=== PATIENT | female | born 2000 | race Caucasian/White ===

== ENCOUNTER 2024-03-14 14:34 | Outpatient (CLI) | payer OTHER, MEDICAID, SELFPAY ==
[2024-03-14 14:56] LABS: Appearance Urine Clear (Clear); Basophils Absolute Auto 0.03 K/mm3 (0.00-0.10); Basophils Percent Auto 0.3 % (0.0-1.0); Bilirubin Urine Negative (Negative); Blood Urine Trace-intact (Negative); Color Urine Light Yellow (Yellow); Eosinophils Absolute Auto 0.02 K/mm3 (0.02-0.50); Eosinophils Percent Auto 0.2 % (1.0-6.0); Glucose Urine UA Negative (Negative); Hematocrit 39.4 % (35.0-49.0); Hemoglobin 13.2 g/dL (12.0-15.0); Immature Granulocyte Absolute 0.04 K/mm3 (0.00-0.00); Immature Granulocyte Percent A 0.5 % (0.0-0.0); Ketones Urine Negative (Negative); Leukocyte Esterase Ur Trace (Negative); Lymphocytes Absolute Auto 1.52 K/mm3 (1.10-4.50); Lymphocytes Percent Auto 17.2 % (18.0-42.0); Mean Corpuscular HGB Conc 33.5 g/dL (32-36); Mean Corpuscular Hemoglobin 30.3 pg (27.0-31.0); Mean Corpuscular Volume 90.4 fL (78.0-102.0); Mean Platelet Volume 10.6 fl (9.2-11.8); Monocytes Absolute Auto 0.57 K/mm3 (0.10-0.90); Monocytes Percent Auto 6.4 % (2.0-11.0); Neutrophils Absolute Auto 6.67 K/mm3 (1.70-7.20); Neutrophils Percent Auto 75.4 % (50.0-70.0); Nitrate Urine Negative (Negative); Platelet Count Result 215 K/mm3 (150-420); Protein Urine Negative (Negative); Red Blood Count 4.36 M/mm3 (4.20-5.40); Red Cell Distribution Width 12.7 % (11.6-14.4); Specific Grav Ur 1.015 (1.010-1.020); Urobilinogen Urine 0.2 mg/dL (0.2-1.0); White Blood Count 8.9 K/mm3 (4.8-10.8)
[2024-03-14 15:05] LABS: Add Urine Microscopic? YES; Bacteria Urine None seen /hpf; RBC Urine 0-2 /hpf (0-2); Squamous Epithelial Cell Urine Moderate /hpf (Few); WBC Urine Noted /hpf (0-3)
[2024-03-14 15:27] LABS: Alanine Aminotransferase 25 U/L (14-59); Albumin Level 3.9 g/dL (3.4-5.0); Alkaline Phosphatase 54 U/L (46-116); Anion Gap 8 mmol/L (4-12); Aspartate Amino Transferase 12 U/L (15-37); Bilirubin,Total 0.8 mg/dL (0.00-1.00); Blood Urea Nitrogen 10 mg/dL (7-18); Carbon Dioxide 25 mmol/L (21-32); Chloride 105 mmol/L (98-108); Estimated Glomerular Filt Rate > 60; Free T4 Free Thyroxine 0.81 ng/dL (0.76-1.46); Glucose 92 mg/dL (70-99); Osmolality Calculated 285 mOsm/kg (285-295); Potassium 4.1 mmol/L (3.5-5.1); Sodium 138 mmol/L (136-145); Thyroid Stimulating Hormone 1.98 uIU/mL (0.36-3.74)
== END 2024-03-14 14:35 | disposition home or self-care (01) ==
LOC: CHSLAB 14:41
PROVIDERS: PCP Nurse Practitioner Family; Visit Provider Nurse Practitioner Family
DX: L03.316 Cellulitis of umbilicus (principal); R53.1 Weakness
CPT/HCPCS: 36415; 80053; 81001; 84439; 84443; 85025

== ENCOUNTER 2024-03-19 08:42 | Outpatient (CLI) | payer OTHER, MEDICAID, SELFPAY ==
--- NOTE | ~2024-03-19 | US_ITS ---
EXAMINATION: US breast LT complete HISTORY: Left breast lump TECHNIQUE: High resolution limited left breast ultrasound was performed. COMPARISON: None FINDINGS: Targeted sonographic imaging of the area of clinical concern was performed at the 12:00-o'clock posit ion of the left breast, 4 cm from the nipple. No solid or cystic mass lesion identified. No distinct sonographic abnormality seen. There is fibroglandular tissue present. IMPRESSION: No distinct sonographic correlate seen for the area of clinical concern in left breast. There is fib roglandular tissue present in this region. BI-RADS Category 1: Negative Reviewed, dictated and finalized at location . IMPRESSION: No distinct sonographic correlate seen for the area of clinical concern in lef t breast. There is fibroglandular tissue present in this region. BI-RADS Category 1: Negative
== END 2024-03-19 08:43 | disposition home or self-care (01) ==
PROVIDERS: PCP Nurse Practitioner Family; Visit Provider Nurse Practitioner Family
DX: N63.21 Unspecified lump in the left breast, upper outer quadrant (principal)
CPT/HCPCS: 76641

== ENCOUNTER 2024-07-03 07:22 | Outpatient (CLI) | payer OTHER, MEDICAID, SELFPAY ==
--- NOTE | ~2024-07-03 | US_ITS ---
EXAMINATION: US pelvic complete w TV DATE: 07/03/2024 07:52 INDICATION: Abnormal uterine bleeding. TECHNIQUE: Multiple transabdominal and transvaginal sonographic images of the pelvis were obtained. COMPARISON: None. FINDINGS: TRANSABDOMINAL ULTRASOUND: The uterus measures 6.1 x 5.8 x 4.0 cm. There is no free fluid in the pelvis. TRANSVAGINAL ULTRASOUND: The endometrial complex measures 4 mm in thickness. There is an intrauterine device in expected posit ion. The right ovary measures 3.1 x 2.2 x 2.0 cm. The left ovary measures 3.4 x 2.4 x 2.8 cm. IMPRESSION: 1. Intrauterine device in expected position. Reviewed, dictated and finalized at location A.
== END 2024-07-03 07:23 | disposition home or self-care (01) ==
LOC: CHSIMG 07:25
PROVIDERS: PCP Nurse Practitioner Family; Visit Provider Nurse Practitioner Family
DX: N93.9 Abnormal uterine and vaginal bleeding, unspecified (principal); Z97.5 Presence of (intrauterine) contraceptive device
CPT/HCPCS: 76830; 76856

== ENCOUNTER 2025-02-10 07:27 | Outpatient (CLI) | payer OTHER, MEDICAID, SELFPAY ==
--- NOTE | ~2025-02-10 | XR_ITS ---
XR shoulder LT min 2V Ordering provider: Gretchen Palacio, GLOBAL TECHNICAL WRITER History: . Left shoulder injury AFTER LIFTING BEER/UNABLE TO ABDUCT . Comparison: None. FINDINGS: BONES: No acute fracture or dislocation. JOINT SPACES: The acromioclavicular joint is normal. The glenohumeral joint is normal. SOFT TISSUES: Normal. IMPRESSION: No acute osseous abnormality left shoulder. Reviewed, dictated and finalized at location A.
--- OUTSIDE RECORDS SUMMARY | 2025-02-10 07:33 | XMS_ITS ---
Author Organization Unknown Address [address] [place] [address] [phone] Phone Care Team Providers Care Medical Laboratory Technicians Name Role Phone ALANNA Noel Attending Unavailable JAZMIN MAXWELL Primary Unavailable Immunization Immunization Date Status Additional Notes Code Code System MMR 02/12/2003 Completed 03 CVX MMR 01/15/2007 Completed 03 CVX Hep B, adolescent or pediatric 2002 Completed 08 CVX Hep B, adolescent or pediatric 2002 Completed 08 CVX Hep B, adolescent or pediatric 06/20/2005 Completed 08 CVX IPV 2002 Completed 10 CVX IPV 2002 Completed 10 CVX IPV 2002 Completed 10 CVX IPV 01/15/2007 Completed 10 CVX Hib, unspecified formulation 2002 Completed 17 CVX Hib, unspecified formulation 2002 Completed 17 CVX Hib, unspecified formulation 06/20/2005 Completed 17 CVX DTaP 2002 Completed 20 CVX DTaP 2002 Completed 20 CVX DTaP 2002 Completed 20 CVX DTaP 06/20/2005 Completed 20 CVX DTaP 01/15/2007 Completed 20 CVX varicella 02/12/2003 Completed 21 CVX HPV, quadrivalent 07/15/2013 Completed 62 C VX HPV, quadrivalent 10/21/2013 Completed 62 C VX HPV, quadrivalent 02/17/2014 Completed 62 C VX pneumococcal conjugate PCV 7 2002 Completed 100 CVX pneumococcal conjugate PCV 7 2002 Completed 100 CVX pneumococcal conjugate PCV 7 06/20/2005 Completed 100 CVX Tdap 07/15/2013 Completed 115 CVX Tdap 07/11/2021 Completed 115 CVX Tdap 05/06/2023 Completed 115 CVX Results NM GASTRIC EMPTYING - Comple jailene: 01/28/2025 12:15 LOINC: \TM00\12PI\DRAo\BM09\ \MRHo\ [address] [address] ---------NAME--------- NUMBER SEX AGE ADMIT DISC. XRAY# F/C TYPE JAMES DUCKWORTH [id number] F 24 01/28/25 01/28/25 67506 XB1 O/P DATE OF : 2000 M/R# [id number] PH#: [phone] \MRHx\ LOCATION: TRANSCRIBED: 01/28/25 14:43 NM GASTRIC EMPTYING [id number] COMPLETED:01/28/25 12:15 [place] [address] {REASON-NM ABD: NAUSEA/VOMITTING PHYSICIAN: QUICKSHONA R A D I O L O G Y R E P O R T Procedure: NM GASTRIC EMPTYING Exam Date: 01/28/2025 07:21 AM Reason for study/Clinical History: NAUSEA/VOMITTING Comparison Study: None Nuclear Medicine Solid Gastric Emptying Study Technique: The patient received an oral administration of 1.05 mCi of technetium 99m sulfur colloid labeled to standardized meal. Findings: Percent gastric retention is as follows: One hour 78 % retained, (normal greater than or equal to 70%) Two hour 49 % retained, (normal less than or equal to 60%) Four hour 9 % retained, (normal between 0% and 10%) Impression: Slightly elevated gastric retention at one hour. Otherwise, unremarkable exam. *Source: Journal of Nuclear Medicine Technology. Vol.36. No.1. 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 \ITLo\ \UNDo\ \UNDx\ \ITLx\ Reviewed and Electronically Signed by: Charlie Dupree MD Signed Date: 01/28/25 14:43 01/28/25.1445.TA .to JAZMIN DANIEL via modem Social History Type Status Start Date End Date Code Code Syst em Smoking History Never smoker (Never Smoked) 430680365 SNOMED CT Sex Female Medications Medication Start Date End Date Route Frequency Dose Code Code System Medication Instructions Home Meds Cephalexin 500MG Oral Capsule 04/21/2024 Unknown ORAL FOUR TIMES A DAY 500 MILLIGRAMS 896559 RxNorm TAKE 500 MILLIGRAMS ORAL FOUR TIMES A DAY Imitrex 25MG Oral Tablet 04/21/2024 Unknown ORAL DIRECTED 25 MILLIGRAMS 914136 RxNorm TAKE 25 MILLIGRAMS ORAL DIRECTED Pepcid 20MG Oral Tablet 04/21/2024 Unknown ORAL ONCE A DAY 20 MILLIGRAMS 367705 RxNorm TAKE 20 MILLIGRAMS ORAL ONCE A DAY Questran 4GM/9GM Oral Powder for Suspension 04/21/2024 Unknown ORAL ONCE A DAY 1 unit(s) 022251 RxNorm TAKE 1 EACH ORAL ONCE A DAY Zofran 4MG Oral Tablet 04/21/2024 Unknown ORAL NEEDED DAILY 4 MILLIGRAMS 618231 RxNorm TAKE 4 MILLIGRAMS ORAL NEEDED DAILY Hospital Discharge Instructions Should you have any questions prior to discharge, please contact a member of your healthcare team. If you have left the hospital and have any questions, please contact your primary care physician. Reason For Referral No Data Found Implants Implanted ISAURO Status Assigning Authority Procedure Date Lot Number Serial Number Manufacturing Date Expiration Date Distinct ID Code Brand Name Model Number FASTTHREAD BIOCOMPOSI TE INTERFENCE SCREW 8 X 20 MM Active ARTHRS AIDED ANT CRUCIATE LIGM RPR/AGMNTJ /RCNSTJ 12/31 [id number] 0 08/23/2020 REF: AR-4020 C-08 JRF SPEEDGRAFT Active ARTHRS AIDED ANT CRUCIATE LIGM RPR/AGMNTJ /RCNSTJ 12/31 ID:[id number] 05/14/2025 SIZE: 8.0 X 234 MM MENISCAL CINCH II Active ARTHRS KNE SURG W/MENISCEC JES MED/LAT W/SHVG 12/31 0783598 2 08/23/2023 REF:AR- 4501 MENISCAL CINCH II Active ARTHRS KNE SURG W/MENISCEC JES MED/LAT W/SHVG 12/31 [id number] 10/24/2023 REF:AR- 4501 ACL TIGHTROPE RT Active ARTHRS AIDED ANT CRUCIATE LIGM RPR/AGMNTJ /RCNSTJ 12/31 7360019 2 09/23/2023 ARTHRE X REF:AR- 1588RT Allergies and Adverse Reactions Allergy Substance Reaction Severity Start Date Concern Status Co de Code System No Known Drug Allergies Active 385782213 SNOMED-CT Plan of Treatment Arthroscopy w/ACL Recon L (XRAY) 2018 Knee 1-2V Left 12/31/2018 Arthroscopy w/ACL Recon L (XRAY) 2018 Knee 1-2V Left 12/31/2018 Arthroscopy Knee L (XRAY) 02/14/2023 Knee 1-2V Left 02/14/2023 Arthrocentesis Inj Major Joint 07/04/20 MRI Low Ext Any Joint W Contrast (67319) 07/04/2023 US Pelvis/Transvaginal (32061) 07/09/20 23 US Abd Limited (06034) 09/07/2023 CT Abdomen/Pelvis W Contrast (10657) EGD 04/21/2024 NM Gastric Emptying (96969) 01/28/2025 Encounters Encounter Diagnosis Start Date Code Code Sys tem Nausea and vomiting 01/28/2025 42827616 SNOMED-C T Personal Care Team Section Performer Name Performer Role Active Date Inactive YENNIFER Smith PCP - Primary care physician 2023-02-082023-07-09 Yonatan Odonnell PCP - Primary care physician 2023-07-09 Imaging Narrative Notes [facility] 01/28/2025 14:45 [facility] [address] [place] [address] ---------NAME--------- NUMBER SEX AGE ADMIT DISC. XRAY# F/C TYPE JAMES DUCKWORTH [id number] F 24 01/28/25 01/28/25 75844 XB1 O/P DATE OF : 2000 M/R# [id number] #: [id number] RM LOCATION: TRANSCRIBED: 01/28/25 14:43 NM GASTRIC EMPTYING 26724 COMPLETED:01/28/25 12:15 [place] [address] {REASON-NM ABD: NAUSEA/VOMITTING PHYSICIAN: QUICKSHONA RADIOLOGY REPORT Procedure: NM GASTRIC EMPTYING Exam Date: 01/28/2025 07:21 AM Reason for study/Clinical History: NAUSEA/VOMITTING Comparison Study: None Nuclear Medicine Solid Gastric Emptying Study Technique: The patient received an oral administration of 1.05 mCi of technetium 99m sulfur colloid labeled to standardized meal. Findings: Percent gastric retention is as follows: One hour 78 % retained, (normal greater than or equal to 70%) Two hour 49 % retained, (normal less than or equal to 60%) Four hour 9 % retained, (normal between 0% and 10%) Impression: Slightly elevated gastric retention at one hour. Otherwise, unremarkable exam. *Source: Journal of Nuclear Medicine Technology. Vol.36. No.1. 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
--- OUTSIDE RECORDS SUMMARY | 2025-02-10 07:33 | XMS_ITS ---
Author Organization Unknown Address [address] [place] [address] [phone] Phone Care Team Providers Care Valve Repairer Name Role Phone ALANNA Noel Attending Unavailable [...] 115 CVX Tdap 05/06/2023 Completed 115 CVX Social History Type Status Start Date End Date Code Code Syst em Smoking History Never smoker (Never Smoked) 128356835 SNOMED CT Sex Female Medications Medication Start Date End Date Route Frequency Dose Code Code System Medication Instructions Home Meds Cephalexin 500MG Oral Capsule 04/21/2024 Unknown ORAL FOUR TIMES A DAY 500 MILLIGRAMS 555928 RxNorm TAKE 500 MILLIGRAMS ORAL FOUR TIMES A DAY Imitrex 25MG Oral Tablet 04/21/2024 Unknown ORAL DIRECTED 25 MILLIGRAMS 945476 RxNorm TAKE 25 MILLIGRAMS ORAL DIRECTED Pepcid 20MG Oral Tablet 04/21/2024 Unknown ORAL ONCE A DAY 20 MILLIGRAMS 573189 RxNorm TAKE 20 MILLIGRAMS ORAL ONCE A DAY Questran 4GM/9GM Oral Powder for Suspension 04/21/2024 Unknown ORAL ONCE A DAY 1 unit(s) 875478 RxNorm TAKE 1 EACH ORAL ONCE A DAY Zofran 4MG Oral Tablet 04/21/2024 Unknown ORAL NEEDED DAILY 4 MILLIGRAMS 313843 RxNorm TAKE 4 MILLIGRAMS ORAL NEEDED DAILY [...] AIDED ANT CRUCIATE LIGM RPR/AGMNTJ /RCNSTJ 12/31 8942456 0 08/23/2020 REF: AR-4020 C-08 JRF SPEEDGRAFT Active ARTHRS AIDED ANT CRUCIATE LIGM RPR/AGMNTJ /RCNSTJ 12/31 ID:[id number] 05/14/2025 SIZE: 8.0 X 234 MM MENISCAL CINCH II Active ARTHRS KNE SURG W/MENISCEC JES MED/LAT W/SHVG 12/31 6620777 2 08/23/2023 REF:AR- 4501 MENISCAL CINCH II Active ARTHRS KNE SURG W/MENISCEC JES MED/LAT W/SHVG 12/31 M857084 10/24/2023 REF:AR- 4501 ACL TIGHTROPE RT Active ARTHRS AIDED ANT CRUCIATE LIGM RPR/AGMNTJ /RCNSTJ 12/31 3112341 2 09/23/2023 ARTHRE X REF:AR- 1588RT Allergies and Adverse Reactions Allergy Substance Reaction Severity Start Date Concern Status Co de Code System No Known Drug Allergies Active 933229424 SNOMED-CT Plan of Treatment Arthroscopy w/ACL Recon L (XRAY) 2018 Knee 1-2V Left 12/31/2018 Arthroscopy w/ACL Recon L (XRAY) 2018 Knee 1-2V Left 12/31/2018 Arthroscopy Knee L (XRAY) 02/14/2023 Knee 1-2V Left 02/14/2023 Arthrocentesis Inj Major Joint 07/04/20 MRI Low Ext Any Joint W Contrast (28910) 07/04/2023 US Pelvis/Transvaginal (31543) 07/09/20 US Abd Limited (29083) 09/07/2023 CT Abdomen/Pelvis W Contrast (47457) EGD 04/21/2024 NM Gastric Emptying (16334) 01/28/2025 Encounters Encounter Diagnosis Start Date Code Code Sys tem Gastro-esophageal reflux disease without esophagitis 0 01/21/2025 SNOMED-CT Personal Care Team Section Performer Name Performer Role Active Date Inactive YENNIFER Smith PCP - Primary care physician 2023 2023-07-09 Yonatan Odonnell PCP - Primary care physician 2023-07-09
--- OUTSIDE RECORDS SUMMARY | 2025-02-10 07:33 | XMS_ITS ---
Author Organization Unknown Address [address] [place] [address] [phone] Phone Care Team Providers Care Skate Boarder Name Role Phone ALANNA Noel Attending Unavailable [...] CVX Tdap 05/06/2023 Completed 115 CVX Results CRP NON SPECIFIC - Collect D ate/Time: 04/04/2024 08:45 [facility] ID: [id number] [address] [place] [address], [phone] LOINC: 1988-01 Test Value Unit Reference Range Code Code System Flag CRP-NON SPECIFIC < 5.0 mg/L L=0.0 H=10.0 1988-01 LOINC CELIAC DISEASE PANEL(REF) - Collect Date/Time: 04/04/2024 08:45 [facility] ID: [id number] [address] [place] [address], [phone] LOINC: Test Value Unit Reference Range Code Code System Flag Immunoglobulin A, Qn,Serum 186 87-352 2458-8 LOINC Deamidated Gliadin Abs,IgA 10 0-19 76313-5 LOINC Deamidated Gliadin Abs,IgG 2 0-19 76987-3 LOINC t-Transglutaminase (tTG)IgA <2 0-3 72724-8 LOIN C t-Transglutaminase (tTG)IgG 3 0-5 36942-7 LOIN C THYROID PROFILE - Collect Da te/Time: 04/04/2024 08:45 [facility] ID: [id number] [address] [place] [address], [phone] LOINC: Test Value Unit Reference Range Code Code System Flag T4, FREE 0.92 ng/dL L=0.78 H=2.19 3024-7 LOINC TSH. 1.970 uIU/L L=0.470 H=4.680 70706-7 LOINC Social History Type Status Start Date End Date Code Code Syst em Smoking History Never smoker (Never Smoked) 346555759 SNOMED CT Sex Female Medications Medication Start Date End Date Route Frequency Dose Code Code System Medication Instructions Home Meds Colace 100MG Oral Capsule, Liquid Filled 02/14/2023 04/07/2024 ORAL TWICE A DAY 100 MILLIGRAMS 3492184 RxNorm TAKE 100 MILLIGRAMS ORAL TWICE A DAY Cyclobenzapr ine 10MG Oral Tablet 02/14/2023 04/07/2024 ORAL NEEDED 3 TIMES A DAY 10 MILLIGRAMS 911848 RxNorm TAKE 10 MILLIGRAMS ORAL NEEDED 3 TIMES A DAY Enteric Aspirin 325MG Oral Tablet, Enteric Coated 02/14/2023 04/07/2024 ORAL ONCE A DAY 325 MILLIGRAMS RxNorm TAKE 325 MILLIGRAMS ORAL ONCE A DAY HYDROcodone bitartrate-a cetaminophen 5MG-325MG Oral Tablet 02/14/2023 04/07/2024 ORAL NEEDED EVERY 6 HOURS 1 unit(s) 468662 RxNorm TAKE 1 EACH ORAL NEEDED EVERY 6 HOURS Keflex 500MG Oral Capsule 02/14/2023 04/07/2024 ORAL THREE TIMES A DAY 500 MILLIGRAMS 567944 RxNorm TAKE 500 MILLIGRAMS ORAL THREE TIMES A DAY Omeprazole 20 MG Oral Tablet, Delayed Release 02/14/2023 04/07/2024 ORAL ONCE A DAY 20 MG RxNorm TAKE 20 MG ORAL ONCE A DAY Cephalexin 500MG Oral Capsule 04/21/2024 Unknown ORAL FOUR TIMES A DAY 500 MILLIGRAMS 077148 RxNorm TAKE 500 MILLIGRAMS ORAL FOUR TIMES A DAY Imitrex 25MG Oral Tablet 04/21/2024 Unknown ORAL DIRECTED 25 MILLIGRAMS 526665 RxNorm TAKE 25 MILLIGRAMS ORAL DIRECTED Pepcid 20MG Oral Tablet 04/21/2024 Unknown ORAL ONCE A DAY 20 MILLIGRAMS 720966 RxNorm TAKE 20 MILLIGRAMS ORAL ONCE A DAY Questran 4GM/9GM Oral Powder for Suspension 04/21/2024 Unknown ORAL ONCE A DAY 1 unit(s) 299896 RxNorm TAKE 1 EACH ORAL ONCE A DAY Zofran 4MG Oral Tablet 04/21/2024 Unknown ORAL NEEDED DAILY 4 MILLIGRAMS 152295 RxNorm TAKE 4 MILLIGRAMS ORAL NEEDED DAILY [...] AIDED ANT CRUCIATE LIGM RPR/AGMNTJ /RCNSTJ 12/31 4736350 0 08/23/2020 REF: AR-4020 C-08 JRF SPEEDGRAFT Active ARTHRS AIDED ANT CRUCIATE LIGM RPR/AGMNTJ /RCNSTJ 12/31 ID:[id number] 05/14/2025 SIZE: 8.0 X 234 MM MENISCAL CINCH II Active ARTHRS KNE SURG W/MENISCEC JES MED/LAT W/SHVG 12/31 4488367 2 08/23/2023 REF:AR- 4501 MENISCAL CINCH II Active ARTHRS KNE SURG W/MENISCEC JES MED/LAT W/SHVG 12/31 R782291 10/24/2023 REF:AR- 4501 ACL TIGHTROPE RT Active ARTHRS AIDED ANT CRUCIATE LIGM RPR/AGMNTJ /RCNSTJ 12/31 5619891 2 09/23/2023 ARTHRE X REF:AR- 1588RT Allergies and Adverse Reactions Allergy Substance Reaction Severity Start Date Concern Status Co de Code System No Known Drug Allergies Active 670129292 SNOMED-CT Plan of Treatment Arthroscopy w/ACL Recon L (XRAY) 2018 Knee 1-2V Left 12/31/2018 Arthroscopy w/ACL Recon L (XRAY) 2018 Knee 1-2V Left 12/31/2018 Arthroscopy Knee L (XRAY) 02/14/2023 Knee 1-2V Left 02/14/2023 Arthrocentesis Inj Major Joint 07/04/20 23 MRI Low Ext Any Joint W Contrast (39760) 07/04/2023 US Pelvis/Transvaginal (33873) 07/09/20 23 US Abd Limited (81626) 09/07/2023 CT Abdomen/Pelvis W Contrast (95230) EGD 04/21/2024 NM Gastric Emptying (43364) 01/28/2025 Encounters Encounter Diagnosis Start Date Code Code Sys tem Diarrhea, unspecified 04/04/2024 SNOMED -CT Personal Care Team Section Performer Name Performer Role Active Date Inactive YENNIFER Smith PCP - Primary care physician 2023 2023-07-09 Yonatan Odonnell PCP - Primary care physician 2023-07-09
--- OUTSIDE RECORDS SUMMARY | 2025-02-10 07:33 | XMS_ITS ---
Author Organization Unknown Address [address] [place] [address] [phone] Phone Care Team Providers Care Service And Repair Supervisor Name Role Phone WASSERMAN HIMA Attending Unavailable JAZMIN MAXWELL Primary Unavailable Immunization [...] CVX Tdap 05/06/2023 Completed 115 CVX Results US ABD LIMITED - Completed: 09/07/2023 10:51 LOINC: EXAM DESCRIPTION: US ABD LIMITED REASON FOR STUDY: UMBILICUS DISCHARGE TECHNIQUE: Ultrasound of the right upper quadrant of the abdomen was performed with grayscale and color doppler. COMPARISON: 03/30/2023 FINDINGS: No fluid collection, hernia, or other cause for presentation identified. IMPRESSION: No fluid collection, hernia, or other cause for presentation identified. Review of the 03/30/2023 CT abdomen pelvis demonstrates a somewhat deep umbilicus which could potentially contain trace fluid or infection. THIS IS AN ELECTRONICALLY VERIFIED FINAL REPORT 09/08/2023 7:19 PM - Electronically signed by Santo Salazar M.D. AR: MARLON Report ID: [id number] Reading Location: [place] [address] Social History Type Status Start Date End Date Code Code Syst em Smoking History Never smoker (Never Smoked) 143209593 SNOMED CT Sex Female Medications Medication Start Date End Date Route Frequency Dose Code Code System Medication Instructions Home Meds Colace 100MG Oral Capsule, Liquid Filled 02/14/2023 04/07/2024 ORAL TWICE A DAY 100 MILLIGRAMS 4449255 RxNorm TAKE 100 MILLIGRAMS ORAL TWICE A DAY Cyclobenzapr ine 10MG Oral Tablet 02/14/2023 04/07/2024 ORAL NEEDED 3 TIMES A DAY 10 MILLIGRAMS 784438 RxNorm TAKE 10 MILLIGRAMS ORAL NEEDED 3 TIMES A DAY Enteric Aspirin 325MG Oral Tablet, Enteric Coated 02/14/2023 04/07/2024 ORAL ONCE A DAY 325 MILLIGRAMS RxNorm TAKE 325 MILLIGRAMS ORAL ONCE A DAY HYDROcodone bitartrate-a cetaminophen 5MG-325MG Oral Tablet 02/14/2023 04/07/2024 ORAL NEEDED EVERY 6 HOURS 1 unit(s) 197584 RxNorm TAKE 1 EACH ORAL NEEDED EVERY 6 HOURS Keflex 500MG Oral Capsule 02/14/2023 04/07/2024 ORAL THREE TIMES A DAY 500 MILLIGRAMS 324483 RxNorm TAKE 500 MILLIGRAMS ORAL THREE TIMES A DAY Omeprazole 20 MG Oral Tablet, Delayed Release 02/14/2023 04/07/2024 ORAL ONCE A DAY 20 MG RxNorm TAKE 20 MG ORAL ONCE A DAY Cephalexin 500MG Oral Capsule 04/21/2024 Unknown ORAL FOUR TIMES A DAY 500 MILLIGRAMS 485000 RxNorm TAKE 500 MILLIGRAMS ORAL FOUR TIMES A DAY Imitrex 25MG Oral Tablet 04/21/2024 Unknown ORAL DIRECTED 25 MILLIGRAMS 607963 RxNorm TAKE 25 MILLIGRAMS ORAL DIRECTED Pepcid 20MG Oral Tablet 04/21/2024 Unknown ORAL ONCE A DAY 20 MILLIGRAMS 526503 RxNorm TAKE 20 MILLIGRAMS ORAL ONCE A DAY Questran 4GM/9GM Oral Powder for Suspension 04/21/2024 Unknown ORAL ONCE A DAY 1 unit(s) 887426 RxNorm TAKE 1 EACH ORAL ONCE A DAY Zofran 4MG Oral Tablet 04/21/2024 Unknown ORAL NEEDED DAILY 4 MILLIGRAMS 934337 RxNorm TAKE 4 MILLIGRAMS ORAL NEEDED DAILY [...] AIDED ANT CRUCIATE LIGM RPR/AGMNTJ /RCNSTJ 12/31 0287182 0 08/23/2020 REF: AR-4020 C-08 JRF SPEEDGRAFT Active ARTHRS AIDED ANT CRUCIATE LIGM RPR/AGMNTJ /RCNSTJ 12/31 ID:[id number] 68-080 05/14/2025 SIZE: 8.0 X 234 MM MENISCAL CINCH II Active ARTHRS KNE SURG W/MENISCEC JES MED/LAT W/SHVG 12/31 2577212 2 08/23/2023 REF:AR- 4501 MENISCAL CINCH II Active ARTHRS KNE SURG W/MENISCEC JES MED/LAT W/SHVG 12/31 [id number] 10/24/2023 REF:AR- 4501 ACL TIGHTROPE RT Active ARTHRS AIDED ANT CRUCIATE LIGM RPR/AGMNTJ /RCNSTJ 12/31 1676760 2 09/23/2023 ARTHRE X REF:AR- 1588RT Allergies and Adverse Reactions Allergy Substance Reaction Severity Start Date Concern Status Co de Code System No Known Drug Allergies Active 483240098 SNOMED-CT Plan of Treatment Arthroscopy w/ACL Recon L (XRAY) 2018 Knee 1-2V Left 12/31/2018 Arthroscopy w/ACL Recon L (XRAY) 2018 Knee 1-2V Left 12/31/2018 Arthroscopy Knee L (XRAY) 02/14/2023 Knee 1-2V Left 02/14/2023 Arthrocentesis Inj Major Joint 07/04/20 MRI Low Ext Any Joint W Contrast (99504) 07/04/2023 US Pelvis/Transvaginal (48479) 07/09/20 US Abd Limited (15520) 09/07/2023 CT Abdomen/Pelvis W Contrast (74488) EGD 04/21/2024 NM Gastric Emptying (84635) 01/28/2025 Encounters Encounter Diagnosis Start Date Code Code Sys tem Digestive system finding 09/07/2023 461722725 SNO MED-CT Personal Care Team Section Performer Name Performer Role Active Date Inactive YENNIFER Smith PCP - Primary care physician 2023 2023-07-09 Yonatan Odonnell PCP - Primary care physician 2023-07-09 Imaging Narrative Notes
--- OUTSIDE RECORDS SUMMARY | 2025-02-10 07:33 | XMS_ITS ---
Author Organization Unknown Address [address] [place] [address] [phone] Phone Care Team Providers Care Appeals Manager Name Role Phone JUANY Miller Attending Unavailable HUONG PARMAR NUT GRADER Unavailable JAZMIN MAXWELL Primary Unavailable Immunization Immunization [...] CVX Tdap 05/06/2023 Completed 115 CVX Results TEST URINE - Colle ct Date/Time: 04/21/2024 10:01 [facility] ID: [id number] [address] [place], [place], [id number] LOINC: Test Value Unit Reference Range Code Code System Flag URINE PREG NEGATIVE Social History Type Status Start Date End Date Code Code Syst em Smoking History Never smoker (Never Smoked) 353778561 SNOMED CT Sex Female Vital Signs Vital Sign Value Unit [place] Value [place] Unit Date/Time Recent/Initial? Code Code System Body Mass Index 26.61 kg/m2 04/21/2024 10:03 Most Recent 58182 -5 LOINC Body Mass Index 26.61 kg/m2 04/07/2024 10:18 Initial 44469 -5 LOINC Systolic Blood Pressure 112 mm[Hg] 04/21/2024 10:03 Initial 8480- 6 LOINC Diastolic Blood Pressure 75 mm[Hg] 04/21/2024 10:03 Initial 8462- 4 LOINC Body Surface Area 1.78 m2 04/21/2024 10:03 Most Recent 3140- 1 LOINC Body Surface Area 1.78 m2 04/07/2024 10:18 Initial 3140- 1 LOINC Height 162.560 0 cm 64.00 in 04/21/2024 10:03 Most Recent 8302- 2 LOINC Height 162.560 0 cm 64.00 in 04/07/2024 10:18 Initial 8302- 2 LOINC O2 Saturation 96 % 2023 10:03 Initial 93339 -5 LOINC Pulse 62.0 /min 04/21/2024 10:03 Initial 8867- 4 LOINC Respiration 14 /min 04/21/20 10:03 Initial 9279- 1 LOINC Temperature 36.4 Kendra 97.5 F 04/21/20 10:03 Initial 8310- 5 LOINC Weight 70.31 kg 155.00 lbs 04/21/2024 10:03 Most Recent 24042 -7 LOINC Weight 70.31 kg 155.00 lbs 04/07/2024 10:18 Initial 57372 -7 LOINC Medications Medication Start Date End Date Route Frequency Dose Code Code System Medication Instructions Home Meds Cephalexin 500MG Oral Capsule 04/21/2024 Unknown ORAL FOUR TIMES A DAY 500 MILLIGRAMS 456181 RxNorm TAKE 500 MILLIGRAMS ORAL FOUR TIMES A DAY Imitrex 25MG Oral Tablet 04/21/2024 Unknown ORAL DIRECTED 25 MILLIGRAMS 346660 RxNorm TAKE 25 MILLIGRAMS ORAL DIRECTED Pepcid 20MG Oral Tablet 04/21/2024 Unknown ORAL ONCE A DAY 20 MILLIGRAMS 911494 RxNorm TAKE 20 MILLIGRAMS ORAL ONCE A DAY Questran 4GM/9GM Oral Powder for Suspension 04/21/2024 Unknown ORAL ONCE A DAY 1 unit(s) 319490 RxNorm TAKE 1 EACH ORAL ONCE A DAY Zofran 4MG Oral Tablet 04/21/2024 Unknown ORAL NEEDED DAILY 4 MILLIGRAMS 806338 RxNorm TAKE 4 MILLIGRAMS ORAL NEEDED DAILY Hospital Discharge Instructions Should you have any questions prior to discharge, please contact a member of your healthcare team. If you have left the hospital and have any questions, please contact your primary care physician. Reason For Referral No Data Found Procedures Procedure Name Date Status Code Code Syste m Anesthesia for upper gastroi ntestinal endoscopic procedures, endoscope int 04/21/2024 completed 12856 CPT Esophagogastroduodenoscopy, flexible, transoral; with biopsy, single or mu 04/21/2024 completed 00729 CPT Implants Implanted ISAURO Status Assigning Authority Procedure Date Lot Number Serial Number Manufacturing Date Expiration Date Distinct ID Code Brand Name Model Number FASTTHREAD BIOCOMPOSI TE INTERFENCE SCREW 8 X 20 MM Active ARTHRS AIDED ANT CRUCIATE LIGM RPR/AGMNTJ /RCNSTJ 12/31 [id number] 08/23/2020 REF: [id number] C-08 JR SPEEDGRAFT Active ARTHRS AIDED ANT CRUCIATE LIGM RPR/AGMNTJ /RCNSTJ 12/31 ID:[id number] 05/14/2025 SIZE: 8.0 X 234 MM MENISCAL CINCH II Active ARTHRS KNE SURG W/MENISCEC JES MED/LAT W/SHVG 12/31 [id number] 2 08/23/2023 REF:AR- [id number] MENISCAL CINCH II Active ARTHRS KNE SURG W/MENISCEC JES MED/LAT W/SHVG 12/31 [id number] 10/24/2023 REF:AR- 4501 ACL TIGHTROPE RT Active ARTHRS AIDED ANT CRUCIATE LIGM RPR/AGMNTJ /RCNSTJ 12/31 [id number] 2 09/23/2023 ARTHRE X REF:AR- [id number] Allergies and Adverse Reactions Allergy Substance Reaction Severity Start Date Concern Status Co de Code System No Known Drug Allergies Active 592562012 SNOMED-CT Plan of Treatment Arthroscopy w/ACL Recon L (XRAY) 2018 Knee 1-2V Left 12/31/2018 Arthroscopy w/ACL Recon L (XRAY) 2018 Knee 1-2V Left 12/31/2018 Arthroscopy Knee L (XRAY) 02/14/2023 Knee 1-2V Left 02/14/2023 Arthrocentesis Inj Major Joint 07/04/20 MRI Low Ext Any Joint W Contrast (21721) 07/04/2023 US Pelvis/Transvaginal (91635) 07/09/20 US Abd Limited (38324) 09/07/2023 CT Abdomen/Pelvis W Contrast (26201) EGD 04/21/2024 NM Gastric Emptying (60620) 01/28/2025 Encounters Encounter Diagnosis Start Date Code Code Sys tem Unspecified chronic gastritis without bleeding 024 SNOMED-CT Personal Care Team Section Performer Name Performer Role Active Date Inactive YENNIFER Smith PCP - Primary care physician 2023 2023-07-09 Yonatan Odonnell PCP - Primary care physician 2023-07-09
--- OUTSIDE RECORDS SUMMARY | 2025-02-10 07:34 | XMS_ITS | Clinical Summary ---
Author Organization [facility] Address [address] [place] [address] Care Team Providers Care Kennel Technician Name Role Phone Gretchen Palacio [employer]IA SPECIALIST Primary Care Provider Allergies No known active allergies Medications pantoprazole EC (PROTONIX) 40 MG tablet Take 1 tablet (40 mg total) by mouth daily. 30 tablet 05/08/2024 Active meloxicam (MOBIC) 15 MG tablet Take 1 tablet (15 mg total) by mouth daily with food 30 tablet 07/31/2024 Active Active Problems Problem Noted Date Diagnosed Date S/P arthroscopy of left knee 03/05/2023 Gallstone pancreatitis ([facility]) 12/14/2021 Pancreatitis ([facility]) 11/12/2021 Transaminitis 11/11/2021 Perineal laceration during delivery ([facility]) Gestational hypertension ([facility]) 10/03/2021 Encounter for induction of labor ([facility]) 10/03 Anemia of in third trimester ([facility]) 10/03/2021 Rh negative state in antepar kathryn period, third trimester ([facility]) 10/03/2021 37 weeks gestation of ([facility]) 2021 Resolved Problems Problem Noted Date Diagnosed Date Resolved Date Tears of meniscus and ACL of left knee 03/12/2019 10/03/2021 Immunizations Immunization Administration Dates Next Due Tdap (Boostrix) 05/06/2023 Family History Medical History Relation Comments Hypertension Father Hypertension Mother Relation Status Comments Father Alive Mother Alive Social History Tobacco Use Types Packs/Day Years Used Date Smoking Tobacco: Never Smokeless Tobacco: Never Tobacco Cessation:Counseling Given: Not Answered Comments:Vapes dailly Alcohol Use Standard Drinks/Week Comments Not Currently 0 (1 standard drink = 0.6 oz pur e alcohol) Humiliation, Afraid, Rape, and Kick questionnair e Answer Date Recorded Within the last year, have y ou been afraid of your partner or ex-partner? No 10/03/2021 Within the last year, have y ou been humiliated or emotionally abused in other ways by your partner or ex-partner? No Within the last year, have y ou been kicked, hit, slapped, or otherwise physically hurt by your partner or ex-partner? No 10/03/2021 Within the last year, have y ou been raped or forced to have any kind of sexual activity by your partner or ex-partner? No 10/03/2021 Social Connection and Isolat ion Panel [NHANES] Answer Date Recorded In a typical week, how many times do you talk on the phone with family, friends, or neighbors? More than three times a week 10/03/2021 How often do you get togethe r with friends or relatives? More than three times a week 10/03/2021 How often do you attend chur ch or voodoo services? Never 10/03/2021 Do you belong to any clubs o r organizations such as presybeterian groups, unions, fraternal or athletic groups, or school groups? No 10/03/2021 How often do you attend meet ings of the clubs or organizations you belong to? Never 10/03/2021 Are you , , di vorced, , never , or living with a partner? Never 10/03/2021 AUDIT-C Answer Date Recorded Q1: How often do you have a drink containing alc ohol? Never 10/03/2021 Q2: How many drinks containi ng alcohol do you have on a typical day when you are drinking? Patient declined 10/03/2021 Q3: How often do you have si x or more drinks on one occasion? Never 10/03/2021 Overall Financial Resource Strain (CARDIA) Answe r Date Recorded How hard is it for you to pa y for the very basics like food, housing, medical care, and heating? Not hard at all 10/03/2021 [facility] - Occupational Stress Questionnaire Answer Date Recorded Do you feel stress - tense, restless, nervous, or anxious, or unable to sleep at night because your mind is troubled all the time - these days? Not at all 10/03/2021 Exercise Vital Sign Answer Date Recorde d On average, how many days pe r week do you engage in moderate to strenuous exercise (like a brisk walk)? 0 days 10/03/2021 On average, how many minutes do you engage in exercise at this level? 0 min 10/03/2021 Hunger Vital Sign Answer Date Recorded Within the past 12 months, y ou worried that your food would run out before you got the money to buy more. Never true 10/03/19 22 Within the past 12 months, t he food you bought just didn't last and you didn't have money to get more. Never true 10/03/2021 PRAPARE - Transportation Answer Date Re corded In the past 12 months, has l ack of transportation kept you from medical appointments or from getting medications? No 09/24 In the past 12 months, has l ack of transportation kept you from meetings, work, or from getting things needed for daily living? No 10/03/2021 Housing Stability Vital Sign Answer Dinesh e Recorded In the last 12 months, was t here a time when you were not able to pay the mortgage or rent on time? No 10/03/2021 In the last 12 months, how many places have you lived? 2 10/03/2021 In the last 12 months, was t here a time when you did not have a steady place to sleep or slept in a jail (including now)? No 10/03/2021 Depression Answer Date Recor ded Last EPDS Total Score 0 10/02/2021 Last EPDS Self Harm Result Never 10/02 Comments No Sex and Gender Information Value Date Recorded Sex Assigned at Female 10/02/2021 8:36 PM COMMUNITY LIAISON Legal Sex Female 5:58 PM COMMUNITY LIAISON Gender Identity Female 10/02/2021 8:36 PM COMMUNITY LIAISON Sexual Orientation Not on file Last Filed Vital Signs Vital Sign Reading Time Taken Comments Blood Pressure 126/67 07/25/2024 11:48 AM CDT Pulse 63 07/25/2024 11:48 AM CDT Temperature 36.3 C (97.3 F) 07/25/2024 11:12 AM CDT Respiratory Rate 18 07/25/2024 11:12 AM CDT Oxygen Saturation 100% 07/25/2024 11:48 AM CDT Inhaled Oxygen Concentration - - Weight 74.8 kg (165 lb) 07/31/2024 1:34 PM COMMUNITY LIAISON Height 165.1 cm (5' 5 ) 07/31/2024 1:34 PM COMMUNITY LIAISON Body Mass Index 27.46 07/31/2024 1:34 PM COMMUNITY LIAISON Plan of Treatment Health Maintenance Due Date Last Done Comments Cervical Cancer Screening Pap Smear (Age 21 to 29) Every 3 Years 2002 Cervical Cancer Screening 2002 Annual Physical 2005 Meningococcal B Vaccine (1 of 2 - Standard) 2018 COVID-19 Vaccine ( season) 2024 DTaP, Tdap and Td Vaccines (9 - Td or Tdap) 05/06/2033 05/06/2023, 07/11/2021, 07/15/2013, Additional history exists Hepatitis B Vaccines Completed 06/20/2005, 2002, 2002 Pneumococcal Vaccine: Pediatrics (0 to 5 Years) and At-Risk Patients (6 to 49 Years) Aged Out 06/20/2005, 2002, 2002 No longer eligible based on patient's age to complete this topic HPV Vaccines Completed 02/17/2014, 09/25, 07/15/2013 Hepatitis C Completed 11/10/2021 Meningococcal Vaccine Aged Out No emily alexi eligible based on patient's age to complete this topic RSV Immunizations Under 20 Months Aged Out No longer eligible based on patient's age to complete this topic Goals Goal Patient Goal Type Associated Problems Recent Progress Patient-Stated? Author Patient will return to prior living situation and remain independent in ADLs upon discharge from hospital General No Nichole Kelly, commercial front load operator - family caregiver with be involved in care transitions and discharge planning General No Indu Castano, riveter helper Procedure Name Priority Date/Time Associated Diagnosis Comments HEPATITIS PANEL,ACUTE Routine 11/10/2021 6:55 AM COMMUNITY LIAISON from Last 3 Months or Most Recently Relevant to Health Maintenance Results * HEPATITIS PANEL,ACUTE (11/10/2021 6:55 AM COMMUNITY LIAISON) HEPATITIS B SURFACE AG NON-REACT LISA NON-REACT LISA 11/10/2021 6:00 PM COMMUNITY LIAISON [facility] Comment:HBsAg NOT DETECTED. HEP B CORE IGM NON-REACT LISA NON-REACT LISA 11/10/2021 6:00 PM COMMUNITY LIAISON [facility] Comment: IgM ANTI HBc NOT DETECTED. DOES NOT EXCLUDE THE POSSIBILITY OF EXPOSURE TO OR INFECTION WITH HBV. NO RETEST REQUIRED. HIGH DOSES OF BIOTIN MAY INTERFERE WITH THIS TEST RESULT. CORRELATION TO CLINICAL HISTORY AND PRESENTATION RECOMMENDED. HAV IGM NON-REACT LISA NON-REACT LISA 11/10/2021 6:00 PM COMMUNITY LIAISON [facility] Comment: IgM ANTI HAV NOT DETECTED. DOES NOT EXCLUDE THE POSSIBILITY OF EXPOSURE TO OR INFECTION WITH HAV. LEVELS OF IgM ANTI HAV MAY BE BELOW THE CUTOFF IN EARLY INFECTION. HEPATITIS C AB NON-REACT LISA NON-REACT LISA 11/10/2021 6:00 PM COMMUNITY LIAISON [facility] Comment: ANTIBODIES TO HCV NOT DETECTED. DOES NOT EXCLUDE THE POSSIBILITY OF EXPOSURE TO HCV. 11/10/2021 6:55 AM COMMUNITY LIAISON Mohamud May MD LABORATORY Final Result [facility] [address] [id number], [id number] from Last 3 Months or Most Recently Relevant to Health Maintenance Additional Health Concerns Infection Onset Date Last Indicated ESBL - Extended Spectrum Bet a-lactamase Comment:10/09/21 Urine (SB) 10/11/2021 10/11/2021 Insurance MEDICAID Advance Directives * Full Code (Latest Code Status on File) Date Activated Date Inactivated Comments 11/12/2021 1:48 PM 11/15/2021 2:21 PM * Full Code Date Activated Date Inactivated Comments 11/10/2021 12:11 PM 11/11/2021 7:10 PM * Full Code Date Activated Date Inactivated Comments 10/02/2021 8:16 PM 10/05/2021 9:57 PM * Full Code Date Activated Date Inactivated Comments 09/30/2021 8:51 AM 09/30/2021 2:19 PM Care Teams Kennel Technician Relationship Specialty Start Date End Date Gretchen Palacio NP PCP - General NURSE PRACTITIONER 05/13/23
--- OUTSIDE RECORDS SUMMARY | 2025-02-10 07:34 | XMS_ITS | Clinical Summary ---
Author Organization [facility] true[x] Media Address [address] [place] [address] Care Team Providers Care Furnace Clerk Name Role Phone Paige Gilbert MD Primary Care Provider [phone] Source Comments [facility] true[x] Media,non-owned Affiliates and Associated Physician Practices is amultiple site organization consisting of ambulatory clinics and hospital sitesin [place], [place], [place] and [place]. This disclosure is being madepursuant to the Care Everywhere program and may not contain all information available regarding this patient. Last updated 18.[facility] true[x] Media Allergies No known active allergies Medications * Be aware that medications may not be up to date on this document. Alwaysverify current medications with the patient. topiramate (TOPAMAX SPRINKLE) 25 MG capsule 25 mg PO QHS for 2 weeks, then increase to 50 mg PO QHS 60 Cap 5 01/12/2015 Active Social History Tobacco Use Types Packs/Day Years Used Date Smoking Tobacco: Never Alcohol Use Standard Drinks/Week Comments Not Asked 0 (1 standard drink = 0.6 oz pur e alcohol) Comments No Sex and Gender Information Value Date Recorded Sex Assigned at Not on file Legal Sex Female 9:31 AM CDT Gender Identity Not on file Sexual Orientation Not on file Last Filed Vital Signs Vital Sign Reading Time Taken Comments Blood Pressure 110/68 05/12/2015 9:23 AM CDT Pulse - - Temperature - - Respiratory Rate - - Oxygen Saturation - - Inhaled Oxygen Concentration - - Weight 73.6 kg (162 lb 4.8 oz) 05/12/2015 9:23 A M CDT Height 162.1 cm (5' 3.82 ) 05/12/2015 9:23 AM CD T Body Mass Index 28.02 05/12/2015 9:23 AM CDT Plan of Treatment Health Maintenance Due Date Last Done Comments HIV SCREENING 2017 HPV VACCINE (1 - 3-dose series) 2017 CHLAMYDIA/GONORRHEA SCREENING 2018 MENINGOCOCCAL (Group B) VACC INE SHARED DECISION-MAKING (1 of 2 - Standard) 2018 HEPATITIS C SCREENING 02/04/2020 DTAP/TDAP/TD VACCINES (1 - Tdap) 2021 HEPATITIS B VACCINE (1 of 3 - 19+ 3-dose series) 2021 COVID-19 VACCINE (1 - 2023-2 5 season) 2024 DEPRESSION SCREENING 09/24/2024 INFLUENZA VACCINE (Season Ended) 2025 ZOSTER VACCINE (1 of 2) 02/09/2052 HIB VACCINE Aged Out No longer eligi ble based on patient's age to complete this topic MENINGOCOCCAL GROUPS A/C/Y/W VACCINE Aged Out No longer eligible b ased on patient's age to complete this topic PNEUMOCOCCAL VACCINE Aged Out No long er eligible based on patient's age to complete this topic Insurance [facility] Care Teams Furnace Clerk Relationship Specialty [place] [address] [place] [address] PCP - General Family Medicine 12/29/14
--- OUTSIDE RECORDS SUMMARY | 2025-02-10 07:34 | XMS_ITS | Encounter Summary ---
Author Organization [facility] Address [address] [place] [address] Care Team Providers Care Muffler Installer Name Role Phone Jose Servin MD Primary Care Provider [phone] Gretchen Palacio NP Primary Care Provider [phone] Encounter Details Date Type Department Care Team (Late st Contact Info) Description 12/16/2021 Hospital Follow-up Call [facility] Medical Oncology [address] [place] [address] Tabby Downing, AVA Social History Tobacco Use Types Packs/Day Years Used Date Smoking Tobacco: Never Smokeless Tobacco: Never Alcohol Use Standard Drinks/Week Comments Not Currently [...] often do you attend chur ch or uatsdin services? Never 10/03/2021 Do you belong to any clubs o r organizations such as religious groups, unions, fraternal or athletic groups, or [...] and heating? Not hard at all 10/03/2021 [facility] ional Health - Occupational Stress [...] place to sleep or slept in a usp (including now)? No 10/03/2021 Depression Answer Date Recor ded Last EPDS Total Score 0 10/02/2021 Last EPDS Self Harm Result Never 10/02 Comments No Sex and Gender Information Value Date Recorded Sex Assigned at Female 10/02/2021 8:36 PM CYBER OPERATOR Legal Sex Female 5:58 PM CYBER OPERATOR Gender Identity Female 10/02/2021 8:36 PM CYBER OPERATOR Sexual Orientation Not on file COVID-19 Exposure Response Date Recorded In the last 10 days, have yo u been in contact with someone who was confirmed or suspected to have Coronavirus/COVID-19? No / Unsure 12/14/2021 3:12 PM CDT documented as of this encounter Functional Status * RETIRED Are you deaf or do you have serious difficulty hearing Answer Date of Assessment Author Status No 12/14/2021 7:20 PM CDT Activ e * RETIRED Are you blind or do you have serious difficulty seeing, even when wearing glasses? Answer Date of Assessment Author Status No 12/14/2021 7:20 PM CDT Activ e * Do you have serious difficulty walking or climbing stairs? Answer Date of Assessment Author Status No 12/14/2021 7:20 PM CDT Juan A Mora RN Active * Do you have difficulty dressing or bathing? Answer Date of Assessment Author Status No 12/14/2021 7:20 PM CDT Juan A Mora RN Active * Because of a physical, mental, or emotional condition, do you have difficulty doing errands alone such as visiting a doctor's office or shopping? Answer Date of Assessment Author Status No 12/14/2021 7:20 PM CDT uJan A Mora RN Active documented as of this encounter Mental Status * Because of a physical, mental, or emotional condition, do you have serious difficulty concentrating, remembering, or making decisions? Answer Entry Date Author Status No 12/14/2021 7:20 PM CDT Juan A Mora RN Active documented in this encounter Plan of Treatment Not on file documented as of this encounter Goals Goal Patient Goal Type Associated Problems Recent Progress Patient-Stated? Author Patient will return to prior living situation and remain independent in ADLs upon discharge from hospital General No Nichole Kelly, information security architect - family caregiver with be involved in care transitions and discharge planning General No Indu Castano RN documented as of this encounter Visit Diagnoses Not on filedocumented in this encounter Additional Health Concerns Infection Onset Date Last Indicated Resolved Time ESBL - Extended Spectrum Bet a-lactamase Comment:10/09/21 Urine (SB) 10/11/2021 10/11/2021 documented as of this encounter Care Teams Muffler Installer Relationship Specialty Start Date End Date Jose Servin MD [address] [place] [id number] PCP - General FAMILY PRACTICE 11/10/21 05/12/23 Gretchen Palacio NP [address] [place] [phone] PCP - General NURSE PRACTITIONER 05/13/23 documented as of this encounter
--- OUTSIDE RECORDS SUMMARY | 2025-02-10 07:34 | XMS_ITS ---
Author Organization Unknown Address [address] [place] [phone] Phone Care Team Providers Care Warehouse Receiver Name Role Phone WASSERMAN HIMA Attending Unavailable [...] em Smoking History Never smoker (Never Smoked) [id number] SNOMED CT Sex Female Medications Medication Start Date End Date Route Frequency Dose Code Code System Medication Instructions Home Meds Colace 100MG Oral Capsule, Liquid Filled 02/14/2023 04/07/2024 ORAL TWICE A DAY 100 MILLIGRAMS 4252303 RxNorm TAKE 100 MILLIGRAMS ORAL TWICE A DAY Cyclobenzapr ine 10MG Oral Tablet 02/14/2023 04/07/2024 ORAL NEEDED 3 TIMES A DAY 10 MILLIGRAMS 325671 RxNorm TAKE 10 MILLIGRAMS ORAL NEEDED 3 TIMES A DAY Enteric Aspirin 325MG Oral Tablet, Enteric Coated 02/14/2023 04/07/2024 ORAL ONCE A DAY 325 MILLIGRAMS RxNorm TAKE 325 MILLIGRAMS ORAL ONCE A DAY HYDROcodone bitartrate-a cetaminophen 5MG-325MG Oral Tablet 02/14/2023 04/07/2024 ORAL NEEDED EVERY 6 HOURS 1 unit(s) 696419 RxNorm TAKE 1 EACH ORAL NEEDED EVERY 6 HOURS Keflex 500MG Oral Capsule 02/14/2023 04/07/2024 ORAL THREE TIMES A DAY 500 MILLIGRAMS 566832 RxNorm TAKE 500 MILLIGRAMS ORAL THREE TIMES A DAY Omeprazole 20 MG Oral Tablet, Delayed Release 02/14/2023 04/07/2024 ORAL ONCE A DAY 20 MG RxNorm TAKE 20 MG ORAL ONCE A DAY Cephalexin 500MG Oral Capsule 04/21/2024 Unknown ORAL FOUR TIMES A DAY 500 MILLIGRAMS 677406 RxNorm TAKE 500 MILLIGRAMS ORAL FOUR TIMES A DAY Imitrex 25MG Oral Tablet 04/21/2024 Unknown ORAL DIRECTED 25 MILLIGRAMS 519126 RxNorm TAKE 25 MILLIGRAMS ORAL DIRECTED Pepcid 20MG Oral Tablet 04/21/2024 Unknown ORAL ONCE A DAY 20 MILLIGRAMS 516785 RxNorm TAKE 20 MILLIGRAMS ORAL ONCE A DAY Questran 4GM/9GM Oral Powder for Suspension 04/21/2024 Unknown ORAL ONCE A DAY 1 unit(s) 948187 RxNorm TAKE 1 EACH ORAL ONCE A DAY Zofran 4MG Oral Tablet 04/21/2024 Unknown ORAL NEEDED DAILY 4 MILLIGRAMS 712826 RxNorm TAKE 4 MILLIGRAMS ORAL NEEDED DAILY [...] AIDED ANT CRUCIATE LIGM RPR/AGMNTJ /RCNSTJ 12/31 [id number] 0 08/23/2020 REF: AR-4020 C-08 JRF SPEEDGRAFT Active ARTHRS AIDED ANT CRUCIATE LIGM RPR/AGMNTJ /RCNSTJ 12/31 ID:[id number] 05/14/2025 SIZE: 8.0 X 234 MM MENISCAL CINCH II Active ARTHRS KNE SURG W/MENISCEC JES MED/LAT W/SHVG 12/31 [id number] 2 08/23/2023 REF:AR- 4501 MENISCAL CINCH II Active ARTHRS KNE SURG W/MENISCEC JES MED/LAT W/SHVG 12/31 [id number] 10/24/2023 REF:AR- 4501 ACL TIGHTROPE RT Active ARTHRS AIDED ANT CRUCIATE LIGM RPR/AGMNTJ /RCNSTJ 12/31 [id number] 2 09/23/2023 ARTHRE X REF:AR- 1588RT Allergies and Adverse Reactions Allergy Substance Reaction Severity Start Date Concern Status Co de Code System No Known Drug Allergies Active 266491212 SNOMED-CT Plan of Treatment Arthroscopy w/ACL Recon L (XRAY) 2018 Knee 1-2V Left 12/31/2018 Arthroscopy w/ACL Recon L (XRAY) 2018 Knee 1-2V Left 12/31/2018 Arthroscopy Knee L (XRAY) 02/14/2023 Knee 1-2V Left 02/14/2023 Arthrocentesis Inj Major Joint 07/04/20 MRI Low Ext Any Joint W Contrast (83402) 07/04/2023 US Pelvis/Transvaginal (88959) 07/09/20 US Abd Limited (25130) 09/07/2023 CT Abdomen/Pelvis W Contrast (01220) EGD 04/21/2024 NM Gastric Emptying (77622) 01/28/2025 Encounters Encounter Diagnosis Start Date Code Code Sys tem Other specified symptoms and signs involving the digestive system and abdomen 08/29/2023 SNOMED-CT Personal Care Team Section Performer Name Performer Role Active Date Inactive YENNIFER Smith PCP - Primary care physician 2023 2023-07-09 Yonatan Odonnell PCP - Primary care physician 2023-07-09
--- OUTSIDE RECORDS SUMMARY | 2025-02-10 07:34 | XMS_ITS | Clinical Summary ---
Author Organization [facility] Address [address] [place] [address] Phone Care Team Providers Care Biodiesel Process Control Technician Name Role Phone Unavailable Primary Care Provider Unavailabl e Allergies No known active allergies Medications prochlorperazine maleate (COMPAZINE) 10 mg tablet Take 1 Tablet (10 mg) by mouth every 8 hours as needed for Nausea. 15 Tablet 07/07/2023 Active dicyclomine (BENTYL) 20 mg tablet Take 1 Tablet (20 mg) by mouth 4 times daily as needed for Pain. 20 Tablet 07/07/2023 Active Social History Tobacco Use Types Packs/Day Years Used Date Smoking Tobacco: Never Tobacco Cessation:Counseling Given: Not Answered Alcohol Use Standard Drinks/Week Comments Not Currently 0 (1 standard drink = 0.6 oz pur e alcohol) Feeling Safe Answer Date Recorded Are you in a relationship wi th someone who hurts you emotionally and/or physically? No 07/07/2023 Comments Unknown Sex and Gender Information Value Date Recorded Sex Assigned at Not on file Legal Sex Female 7:18 AM CDT Gender Identity Not on file Sexual Orientation Not on file Last Filed Vital Signs Vital Sign Reading Time Taken Comments Blood Pressure 135/75 07/07/2023 7:23 AM CDT Pulse 65 07/07/2023 7:23 AM CDT Temperature 36.4 C (97.5 F) 07/07/2023 7:23 AM CDT Respiratory Rate 18 07/07/2023 7:23 AM CDT Oxygen Saturation 100% 07/07/2023 7:23 AM CDT Inhaled Oxygen Concentration - - Weight 70.3 kg (155 lb) 07/07/2023 7:23 AM CDT Height - - Body Mass Index - - Plan of Treatment Health Maintenance Due Date Last Done Comments CHLAMYDIA SCREENING (ANNUAL) 11-24 YEARS 2013 HPV VACCINES (1 - 3-dose series) 2017 HEPATITIS B VACCINES (1 of 3 - 19+ 3-dose series) 01/22 CERVICAL CANCER SCREENING 2023 HPV/Cotest (21-29) 2023 PAP SMEAR 2023 INFLUENZA VACCINE (#1) 2024 DTAP/TDAP/TD VACCINES (2 - Td or Tdap) 05/06/2033 Insurance [facility] [id number] POS II
--- OUTSIDE RECORDS SUMMARY | 2025-02-10 07:34 | XMS_ITS | Encounter Summary ---
Author Organization [facility] Address [address] [place] [address] Care Team Providers Care Continuous Mining Machine Lode Miner Name Role Phone Paige Gilbert MD Primary Care Provider Jose Servin MD Primary Care Provider [phone] Gretchen Palacio NP Primary Care Provider [phone] Encounter Details Date Type Department Care Team (Late st Contact Info) Description 03/01/2019 Abstract SFL CONVERSION [address] [place] [address] , Generic Conversion, Social History Tobacco Use Types Packs/Day Years Used Date Smoking Tobacco: Never Assessed Comments Unknown Sex and Gender Information Value Date Recorded Sex Assigned at Female 10/02/2021 8:36 PM INSTALL TECHNICIAN Legal Sex Female 5:58 PM INSTALL TECHNICIAN Gender Identity Female 10/02/2021 8:36 PM INSTALL TECHNICIAN Sexual Orientation Not on file documented as of this encounter Plan of Treatment Not on file documented as of this encounter Visit Diagnoses Not on filedocumented in this encounter Additional Health Concerns Infection Onset Date Last Indicated Resolved Time COVID-19 Rule Out 09/30/2021 09/30/2021 09/30/2021 10:27 PM INSTALL TECHNICIAN ESBL - Extended Spectrum Beta-lactamase Comment:10/09/21 Urine (SB) 10/11/2021 10/11/2021 COVID-19 Rule Out 11/12/2021 11/12/2021 11/12/2021 9:58 AM INSTALL TECHNICIAN COVID-19 Rule Out 12/14/2021 12/14/2021 12/14/2021 10:09 PM CDT documented as of this encounter Care Teams Continuous Mining Machine Lode Miner Relationship Specialty [place] [address] [place] [address] PCP - General FAMILY PRACTICE 03/05/19 11/09/21 Jose Servin MD [address] [place] [address] PCP - General FAMILY PRACTICE 11/10/21 05/12/23 Gretchen Palacio NP [address] [place] [address] PCP - General NURSE PRACTITIONER 05/13/23 documented as of this encounter
--- OUTSIDE RECORDS SUMMARY | 2025-02-10 07:34 | XMS_ITS ---
Author Organization Unknown Address [address] [place] [phone] Phone Care Team Providers Care Orthopedic Specialist Name Role Phone JUANI Castellanos Attending Unavailable JAZMIN MAXWELL Primary Unavailable Immunization [...] CVX Tdap 05/06/2023 Completed [address] ABD/PEL W/ CONTRAST - Com pleted: 05/06/2024 10:38 [facility]: [id number] EXAM DESCRIPTION: CT ABD/PEL W/ CONTRAST REASON FOR STUDY: cellulitis of umbilicus --yellow discharge x 2 yrs hx gb removed 2 yrs ago, IUD Duration: 2 yrs TECHNIQUE: CT scan of the abdomen and pelvis performed with intravenous and without oral contrast using helical scanning technique with dynamic intravenous contrast injection. Reconstructed coronal and sagittal MPR images reviewed. All images stored on PACS. Automated exposure control was used as a dose optimization technique for this examination. CONTRAST TYPE/DOSE: 100 of isovue 370 injected via right antecubital IV COMPARISON: 03/30/2023 FINDINGS: LOWER CHEST: The heart size is normal. There is no definite evidence of a pericardial effusion. There is a minimal to mild bibasilar subsegmental atelectasis. LIVER: The liver is grossly stable in size and contour without definite evidence of focal hepatic lesion. The hepatic and portal veins are grossly patent. GALLBLADDER: Surgically absent. BILE DUCTS: No intrahepatic or extrahepatic ductal dilatation. SPLEEN: The spleen measures 12.7 cm in the AP dimension, which is at the upper limits of normal. PANCREAS: The pancreas appears grossly stable without definite of pancreatic ductal dilatation, peripancreatic inflammatory changes, or peripancreatic fluid collection. ADRENALS: The bilateral adrenal glands are grossly stable and unremarkable. KIDNEYS/URINARY TRACT: The bilateral kidneys enhance symmetrically. There is no definite evidence of a focal renal lesion. 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 There is no definite evidence of hydronephrosis or hydroureter. The urinary bladder is grossly unremarkable. GI: There is no definite evidence of a bowel obstruction. The appendix is visualized without definite evidence of pericecal or periappendiceal inflammatory changes to suggest appendicitis. There are few scattered colonic diverticula without definite evidence of diverticulitis. There is mild mucosal thickening of the descending colon and proximal sigmoid colon. There is no definite evidence of free air in the abdomen and pelvis. There is small amount of nonspecific free fluid in the pelvis. There is no definite evidence of lymphadenopathy in the abdomen and pelvis. REPRODUCTIVE: There is an intrauterine device noted in the uterus. There are prominent periuterine vessels noted with reflux of contrast into the gonadal veins, which is nonspecific, and can be seen in the setting of pelvic congestion syndrome. There are likely follicular changes of the bilateral ovaries. There is a cystic lesion in the left ovary measuring 1.6 cm with an irregular hyperattenuating rim, which likely represents a corpus luteum or hemorrhagic cyst, possibly resolving (axial image 127). MUSCULOSKELETAL: There is a minimal to mild levoscoliotic curvature of the spine. The visualized periumbilical soft tissues appear grossly unremarkable without definite CT evidence of periumbilical inflammatory changes or periumbilical fluid collection. OTHER: No other abnormality. IMPRESSION: ? ? Visualized periumbilical soft tissues appear grossly unremarkable without definite CT evidence of periumbilical inflammatory changes or periumbilical fluid collection. ? ? No definite evidence of bowel obstruction. ? ? Mild mucosal thickening of the descending colon and proximal sigmoid colon, which is likely related to underdistention and less likely mild colitis of infectious or inflammatory etiology. ? ? Left ovarian cystic lesion measuring 1.6 cm with an irregular hyperattenuating rim, which likely represents a corpus luteum or hemorrhagic cyst, possibly resolving. ? ? Small amount of nonspecific free fluid in the pelvis. ? ? Few scattered colonic diverticula without definite evidence of diverticulitis. ? ? Appendix is visualized without definite evidence of pericecal or periappendiceal inflammatory changes to suggest appendicitis. THIS IS AN ELECTRONICALLY VERIFIED FINAL REPORT 05/07/2024 9:29 AM - Electronically signed by Mio Cantu D.O. PS: PS Report ID: [id number] Reading Location: [place] [address] Social History Type Status Start Date End Date Code Code Syst em Smoking History Never smoker (Never Smoked) [id number] [facility] Sex Female Medications Medication Start Date End Date Route Frequency Dose Code Code System Medication Instructions Home Meds Cephalexin 500MG Oral Capsule 04/21/2024 Unknown ORAL FOUR TIMES A DAY 500 MILLIGRAMS 800241 RxNorm TAKE 500 MILLIGRAMS ORAL FOUR TIMES A DAY Imitrex 25MG Oral Tablet 04/21/2024 Unknown ORAL DIRECTED 25 MILLIGRAMS 327427 RxNorm TAKE 25 MILLIGRAMS ORAL DIRECTED Pepcid 20MG Oral Tablet 04/21/2024 Unknown ORAL ONCE A DAY 20 MILLIGRAMS 756462 RxNorm TAKE 20 MILLIGRAMS ORAL ONCE A DAY Questran 4GM/9GM Oral Powder for Suspension 04/21/2024 Unknown ORAL ONCE A DAY 1 unit(s) 356782 RxNorm TAKE 1 EACH ORAL ONCE A DAY Zofran 4MG Oral Tablet 04/21/2024 Unknown ORAL NEEDED DAILY 4 MILLIGRAMS 159547 RxNorm TAKE 4 MILLIGRAMS ORAL NEEDED DAILY [...] AIDED ANT CRUCIATE LIGM RPR/AGMNTJ /RCNSTJ 12/31 [id number] 0 08/23/2020 REF: AR-4020 C-08 JRF SPEEDGRAFT Active ARTHRS AIDED ANT CRUCIATE LIGM RPR/AGMNTJ /RCNSTJ 12/31 ID:[id number] 05/14/2025 SIZE: 8.0 X 234 MM MENISCAL CINCH II Active ARTHRS KNE SURG W/MENISCEC JES MED/LAT W/SHVG 12/31 [id number] 2 08/23/2023 REF:AR- 4501 MENISCAL CINCH II Active ARTHRS KNE SURG W/MENISCEC JES MED/LAT W/SHVG 12/31 [id number] 10/24/2023 REF:AR- 4501 ACL TIGHTROPE RT Active ARTHRS AIDED ANT CRUCIATE LIGM RPR/AGMNTJ /RCNSTJ 12/31 [id number] 2 09/23/2023 ARTHRE X REF:AR- 1588RT Allergies and Adverse Reactions Allergy Substance Reaction Severity Start Date Concern Status Co de Code System No Known Drug Allergies Active [id number] SNOMED-CT Plan of Treatment Arthroscopy w/ACL Recon L (XRAY) 2018 Knee 1-2V Left 12/31/2018 Arthroscopy w/ACL Recon L (XRAY) 2018 Knee 1-2V Left 12/31/2018 Arthroscopy Knee L (XRAY) 02/14/2023 Knee 1-2V Left 02/14/2023 Arthrocentesis Inj Major Joint 07/04/20 MRI Low Ext Any Joint W Contrast ([id number]) 07/04/2023 US Pelvis/Transvaginal (44116) 07/09/20 US Abd Limited (06369) 09/07/2023 CT Abdomen/Pelvis W Contrast (98484) EGD 04/21/2024 NM Gastric Emptying (60240) 01/28/2025 Encounters Encounter Diagnosis Start Date Code Code Sys tem Cellulitis of left lower limb 05/06/2024 SNOMED-CT Personal Care Team Section Performer Name Performer Role Active Date Inactive YENNIFER Smith PCP - Primary care physician 2023 2023-07-09 Yonatan Odonnell PCP - Primary care physician 2023-07-09 Imaging Narrative Notes
== END 2025-02-10 07:28 | disposition home or self-care (01) ==
LOC: CHSIMG 07:30
PROVIDERS: PCP Nurse Practitioner Family; Visit Provider Nurse Practitioner Family
DX: S49.92XA Unspecified injury of left shoulder and upper arm, initial encounter (principal)
CPT/HCPCS: 73030

== ENCOUNTER 2025-07-30 14:14 | Outpatient (CLI) | payer OTHER, MEDICAID, SELFPAY ==
--- OUTSIDE RECORDS SUMMARY | 2025-07-29 09:06 | XMS_ITS | Encounter Summary ---
Author Organization [facility] Address [facility] [place] [address] Care Team Providers Care Sports Apparel Internship Name Role Phone Gretchen Palacio ORCHESTRA MUSICIAN Primary Care Provider [phone] Reason for Visit * Reason Comments Nose Problem Encounter Details Date Type Department Care Team ([facility] st Contact Info) Description 07/29/2025 9:06 AM TITLE AGENT - 07/29/2025 9:50 AM [facility] Emergency [facility] [facility] [place], [place] [id number] Chino Carr MD [address] [place] [id number] Nose Problem Discharge Disposition: Home or Self Care (Routine Discharge) Social History Tobacco Use Types Packs/Day Years Used Date Smoking Tobacco: Never Smokeless Tobacco: Never Comments:Vapes dailly Alcohol Use Standard Drinks/Week Comments [...] or ex-partner? No 10/03/2021 Social Connection and Isolation Panel Answer Date Recorded In a typical week, how many times do you talk on the phone with family, friends, or neighbors? More than three times a week 10/03/2021 How often do you get togethe r with friends or relatives? More than three times a week 10/03/2021 How often do you attend chur ch or judaism services? Never 10/03/2021 Do you belong to any clubs o r organizations such as mandaeism groups, unions, fraternal or athletic groups, or [...] and heating? Not hard at all 10/03/2021 [facility] [place] of Occupat ional Health - Occupational Stress [...] place to sleep or slept in a nursing home (including now)? No 10/03/2021 Depression Answer Date Recor ded Last EPDS Total Score 0 10/02/2021 Last EPDS Self Harm Result Never 10/02 Comments No Sex and Gender Information Value Date Recorded Sex Assigned at Female 10/02/2021 8:36 PM TITLE AGENT Legal Sex Female 5:58 PM TITLE AGENT Gender Identity Female 10/02/2021 8:36 PM TITLE AGENT Sexual Orientation Not on file documented as of this encounter Last Filed Vital Signs Vital Sign Reading Time Taken Comments Blood Pressure 135/77 07/29/2025 9:30 AM TITLE AGENT Pulse 71 07/29/2025 9:30 AM TITLE AGENT Temperature 36.2 C (97.2 F) 07/29/2025 9:09 AM TITLE AGENT Respiratory Rate 16 07/29/2025 9:30 AM TITLE AGENT Oxygen Saturation 98% 07/29/2025 9:30 AM TITLE AGENT Inhaled Oxygen Concentration - - Weight 81 kg (178 lb 8 oz) 07/29/2025 9:09 AM CS T Height 163.8 cm (5' 4.5) 07/29/2025 9:09 AM TITLE AGENT Body Mass Index 30.17 07/29/2025 9:09 AM TITLE AGENT documented in this encounter Functional Status * RETIRED Are [...] Assessment Author Status No 12/14/2021 7:20 PM Juan A Lazo RN Active * Do you have difficulty dressing or bathing? Answer Date of Assessment Author Status No 12/14/2021 7:20 PM Juan A Lazo RN Active * Because of a physical, mental, or emotional condition, do you have difficulty doing errands alone such as visiting a doctor's office or shopping? Answer Date of Assessment Author Status No 12/14/2021 7:20 PM Juan A Lazo RN Active * Calculated C-SSRS Risk Score (Lifetime/Recent) Answer Date of Assessment Author Status No Risk Indicated 07/29/2025 9:20 AM Sami Strickland RN Active * [place] Suicide Severity Rating Scale (Screener/Recent Self-Report) Question Answer Date of Assessment Author Status 1. Wish to be (Past 1 Month) No 07/29/2025 9:20 AM Indu Strickland RN Act tunde 2. Non-Specific Active Suicidal Thoughts (Past 1 Month) No 07/29/2025 9:20 AM Indu Strickland RN Act tunde 6. Suicidal Behavior (Lifetime) No 07/29/2025 9:20 AM Indu Strickland RN Act tunde documented as of this encounter Mental Status * Because of a physical, mental, or emotional condition, do you have serious difficulty concentrating, remembering, or making decisions? Answer Entry Date Author Status No 12/14/2021 7:20 PM Juan A Lazo RN Active documented in this encounter Discharge Instructions * Discharge Instructions* Chino Carr MD - 07/29/2025 9:24 AM TITLE AGENT Ice Advil Rest Current taking home medicine. Return if headache nausea vomiting E AGENT * Attachments The following attachments cannot be sent through Care Everywhere. * Contusion Discharge Instructions (Serbian) documented in this encounter Medications at Time of Discharge meloxicam (MOBIC) 15 MG tablet Take 1 tablet (15 mg total) by mouth daily with food 30 tablet 07/31/2024 pantoprazole EC (PROTONIX) 40 MG tablet Take 1 tablet (40 mg total) by mouth daily. 30 tablet 05/08/2024 documented as of this encounter ED Notes * Chino Carr MD - 07/29/2025 9:24 AM CST Chief Complaint No chief complaint on file. History of Present Illness 25-year-old female complaining of contusion to the nose. 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 She saw flashing lights. Denies any loss of consciousness. Denies any nasal bleeding. Shortness of the top out of the nose. No no acute deformity. Denies any neck pain no other injuries She is not on any blood thinners she does take Mobic and Protonix. In the emergency room normal exam. Hemodynamically stable. No active deformities or injuries noted. Medical History ALLERGIES: Not on File MEDICATIONS: Prior to Admission medications Medication Sig Start Date End Date Taking? Authorizing Provider meloxicam (MOBIC) 15 MG tablet Take 1 tablet (15 mg total) by mouth daily with food 07/31/24 YELENA Hayward pantoprazole EC (PROTONIX) 40 MG tablet Take 1 tablet (40 mg total) by mouth daily. 05/08/24 MD Jorge PAST MEDICAL HISTORY: Past Medical History[1] PAST SURGICAL HISTORY: Past Surgical History[2] FAMILY HISTORY: Family History[3] SOCIAL HISTORY: Social History[4] Review of Systems Review of Systems HENT: Negative. Eyes: Negative. Respiratory: Negative. Cardiovascular: Negative. Gastrointestinal: Negative. Physical Exam Filed Vitals: 07/29/25 0909 BP: 137/75 Pulse: 75 Resp: 16 Temp: 97.2 ??F (36.2 ??C) TempSrc: Temporal SpO2: 97% Weight: 81 kg (178 lb 8 oz) Height: 1.638 m (5' 4.5) Physical Exam Vitals and nursing note reviewed. HENT: Head: Normocephalic. Right Ear: Tympanic membrane normal. Nose: Nose normal. Eyes: Conjunctiva/sclera: Conjunctivae normal. Cardiovascular: Rate and Rhythm: Normal rate. Pulses: Normal pulses. Pulmonary: Effort: Pulmonary effort is normal. Abdominal: General: Abdomen is flat. Musculoskeletal: Cervical back: Normal range of motion. Neurological: General: No focal deficit present. Mental Status: She is alert and oriented to person, place, and time. Mental status is at baseline. Diagnostic Studies / Procedures ELECTROCARDIOGRAMS: No results found for this visit on 07/29/25. LABORATORY STUDIES: No results found for this visit on 07/29/25. IMAGING STUDIES No orders to display ED Course / Medical Decision Making 25-year-old female involved in a minor bump to the nose area. I do not see any deformities. She has no septal hematoma on exam. No active tenderness noted. I offered her x-ray she declined. She has no other injuries noted. Advised ice Tylenol Advil and follow-up. She understand agrees. Differential discussed in detail. Medical Decision Making Clinical Impression Nasal contusion (Primary) Disposition: Discharge [1] Past Medical History: Diagnosis Date Abdominal pain Anemia during Concussion x 4 with sports injuries Gestational hypertension (HHS/HCC) 10/03/2021 Migraines Nausea and vomiting Pancreatitis (HHS/HCC) 10/2021 [2] Past Surgical History: Procedure Laterality Date ANTERIOR CRUCIATE LIGAMENT REPAIR Left 2019 DENTAL SURGERY PROCEDURE KNEE SCOPE,MED OR LAT MENIS REPAIR REMOVAL GALLBLADDER 2021 [3] Family History Problem Relation Name Age of Onset Hypertension Mother Hypertension Father [4] Social History Tobacco Use Smoking status: Never Smokeless tobacco: Never Tobacco comments: Vapes dailly Vaping Use Vaping status: Some Days Substances: Nicotine Substance Use Topics Alcohol use: Not Currently Drug use: Yes Types: Marijuana Comment: socially Chino Carr MD 07/29/25 0926 E AGENT * Indu Byrd RN - 07/29/2025 9:15 AM CST Pain to nose. Pt was attempting to lift a child and was struck on the bridge of the nose by the Demetrius head. Denies bleeding. Denies LOC. E AGENT documented in this encounter Plan of Treatment Not on file documented as of this encounter Goals Goal Patient Goal Type Associated Problems Recent Progress Patient-Stated? Author Patient will return to prior living situation and remain independent in ADLs upon discharge from hospital General No Nichole Kelly, scrap baller - family caregiver with be involved in care transitions and discharge planning General Indu Keyes RN documented as of this encounter Visit Diagnoses Diagnosis Nasal contusion- Primary Contusion of face, scalp, and neck except eye(s) documented in this encounter Additional Health Concerns Infection Onset Date Last Indicated Resolved Time ESBL - Extended Spectrum Bet a-lactamase Comment:10/09/21 Urine (SB) 10/11/2021 10/11/2021 documented as of this encounter Care Teams Sports Apparel Internship Relationship Specialty Start Date End Date Gretchen Palacio, ORCHESTRA MUSICIAN PCP - General NURSE PRACTITIONER 05/13/23 documented as of this encounter
[2025-07-30 14:57] LABS: Strep Group A RT-PCR NOT DETECTED (Negative)
[2025-07-30 15:07] LABS: Influenza A QL RT-PCR Negative (Negative); Influenza B QL RT-PCR Negative (Negative); RSV RNA, RT-PCR Negative (Negative); SARS-CoV-2 RNA PCR Negative (Negative)
--- OUTSIDE RECORDS SUMMARY | 2025-07-30 20:31 | XMS_ITS | Encounter Summary ---
Author Organization [facility] Address [facility] [place] [address] Care Team Providers Care Summer Counselor Name Role Phone Jose Servin MD Primary Care Provider [phone] Gretchen Palacio NP Primary Care Provider [phone] Encounter Details Date Type Department Care Team (Late st Contact Info) Description 12/16/2021 Hospital Follow-up Call [facility] Inpatient Medical Oncology [address] [place] [address] Tabby Downing, RN Social History Tobacco Use Types Packs/Day Years [...] often do you attend chur ch or rastafari services? Never 10/03/2021 Do you belong to [...] and heating? Not hard at all 10/03/2021 [facility] of Occupat ional Health - Occupational Stress [...] place to sleep or slept in a skilled nursing (including now)? No 10/03/2021 Depression Answer Date Recor ded Last EPDS Total Score 0 10/02/2021 Last EPDS Self Harm Result Never 10/02 Comments No Sex and Gender Information Value Date Recorded Sex Assigned at Female 10/02/2021 8:36 PM ASSEMBLY LINE WORKER Legal Sex Female 5:58 PM ASSEMBLY LINE WORKER Gender Identity Female 10/02/2021 8:36 PM ASSEMBLY LINE WORKER Sexual Orientation Not on file COVID-19 Exposure [...] CDT Juan A Mora RN Active documented as of [...] discharge from hospital General No Nichole Kelly, vocational training director - family caregiver with be involved in care transitions and discharge planning General No Indu Castano RN documented as of this encounter Visit Diagnoses Not on filedocumented in this encounter Additional Health Concerns Infection Onset Date Last Indicated Resolved Time ESBL - Extended Spectrum Bet a-lactamase Comment:10/09/21 Urine (SB) 10/11/2021 10/11/2021 documented as of this encounter Care Teams Summer Counselor Relationship Specialty Start Date End Date Jose Servin MD [address] [place] [phone] PCP - General FAMILY PRACTICE 11/10/21 05/12/23 Gretchen Palacio NP [address] [place] [phone] PCP - General NURSE PRACTITIONER 05/13/23 documented as of this encounter
--- OUTSIDE RECORDS SUMMARY | 2025-07-30 20:31 | XMS_ITS | Clinical Summary ---
Author Organization [facility] Address [address] [place] [address] Care Team Providers Care Stage Manager Name Role Phone Paige Gilbert MD Primary Care Provider [phone] Source Comments [facility],non-owned Affiliates and Associated Physician Practices is amultiple site organization consisting of ambulatory clinics and hospital sitesin [place], [place], [place] and [place]. This disclosure is being madepursuant to the Care Everywhere program and may not contain all information available regarding this patient. Last updated 18.[facility] Allergies No known active allergies Medications * [...] A M CDT Height 162.1 cm (5' 3.82) 05/12/2015 9:23 AM CD T Body Mass [...] of 3 - 19+ 3-dose series) 2021 DEPRESSION SCREENING 09/24/2024 COVID-19 VACCINE (1 - 2023-2 5 season) 2025 INFLUENZA VACCINE (#1) 2025 ZOSTER VACCINE (1 of 2) 02/09/2052 HIB VACCINE Aged Out No longer eligi ble based on patient's age to complete this topic MENINGOCOCCAL GROUPS A/C/Y/W VACCINE Aged Out No longer eligible b ased on patient's age to complete this topic PNEUMOCOCCAL VACCINE Aged Out No long er eligible based on patient's age to complete this topic Insurance [facility] Care Teams Stage Manager Relationship Specialty [place] [address] [place] [address] PCP - General Family Medicine 12/29/14
--- OUTSIDE RECORDS SUMMARY | 2025-07-30 20:31 | XMS_ITS | Clinical Summary ---
Author Organization [facility] Address [address] [place] [address] Care Team Providers Care Payroll Associate Name Role Phone Gretchen Palacio VMWARE ARCHITECT Primary Care Provider [phone] Medications pantoprazole EC (PROTONIX) 40 MG tablet Take 1 tablet (40 mg total) by mouth daily. 30 tablet 05/08/2024 Active meloxicam (MOBIC) 15 MG tablet Take 1 tablet (15 mg total) by mouth daily with food 30 tablet 07/31/2024 Active Active Problems Problem Noted Date Diagnosed Date Acute pain of left shoulder 02/22/2025 S/P arthroscopy of left knee 03/05/2023 Gallstone pancreatitis 12/14/2021 Pancreatitis 11/12/2021 Transaminitis 11/11/2021 Perineal laceration during delivery 10/05/2021 Gestational hypertension 10/03/2021 Encounter for induction of labor 10/03/2021 Anemia of in third trimester Rh negative state in antepartum period, third tr imester 10/03/2021 37 weeks gestation of 10/02/2021 Resolved Problems Problem Noted Date Diagnosed Date Resolved Date Tears of meniscus and ACL of left knee 03/12/2019 10/03/2021 Encounters Date Type Department Care Team Description 07/29/2025 9:06 AM PARACHUTE PACKER - 07/29/2025 9:[address] [facility] [address] [place] [address] Chino Carr MD Nose Problem Discharge Disposition: Home or Self Care (Routine Discharge) 07/29/2025 Travel from Last 3 Months Immunizations Immunization Administration Dates Next Due Tdap [...] often do you attend chur ch or religion services? Never 10/03/2021 Do you belong to any clubs o r organizations such as worship groups, unions, fraternal or athletic groups, or [...] and heating? Not hard at all 10/03/2021 [facility] of Occupat ional Health - Occupational Stress [...] place to sleep or slept in a penitentiary (including now)? No 10/03/2021 Depression Answer Date Recor ded Last EPDS Total Score 0 10/02/2021 Last EPDS Self Harm Result Never 10/02 Comments No Sex and Gender Information Value Date Recorded Sex Assigned at Female 10/02/2021 8:36 PM PARACHUTE PACKER Legal Sex Female 5:58 PM PARACHUTE PACKER Gender Identity Female 10/02/2021 8:36 PM PARACHUTE PACKER Sexual Orientation Not on file Last Filed Vital Signs Vital Sign Reading Time Taken Comments Blood Pressure 135/77 07/29/2025 9:30 AM PARACHUTE PACKER Pulse 71 07/29/2025 9:30 AM PARACHUTE PACKER Temperature 36.2 C (97.2 F) 07/29/2025 9:09 AM PARACHUTE PACKER Respiratory Rate 16 07/29/2025 9:30 AM PARACHUTE PACKER Oxygen Saturation 98% 07/29/2025 9:30 AM PARACHUTE PACKER Inhaled Oxygen Concentration - - Weight 81 kg (178 lb 8 oz) 07/29/2025 9:09 AM CS T Height 163.8 cm (5' 4.5) 07/29/2025 9:09 AM PARACHUTE PACKER Body Mass Index 30.17 07/29/2025 9:09 AM PARACHUTE PACKER Plan of Treatment Health Maintenance Due Date Last Done Comments Cervical Cancer Screening Pap Smear (Age 21 to 29) Every 3 Years 2002 Cervical Cancer Screening 2002 Annual Physical 2005 Meningococcal B Vaccine (1 of 2 - Standard) 2018 COVID-19 Vaccine ( - season) 2025 Influenza Adult (#1) 2025 DTaP, Tdap and Td Vaccines (9 - [...] 02/17/2014, 09/25, 07/15/2013 Hepatitis C Completed 11/10/2021 Hepatitis A Vaccines Aged Out No long er eligible based on patient's age to complete this topic Meningococcal Vaccine Aged Out No emily alexi eligible based on patient's age to complete this topic RSV Immunizations Under 20 Months Aged Out No longer eligible based on patient's age to complete this topic Goals Goal Patient Goal Type Associated Problems Recent Progress Patient-Stated? Author Patient will return to prior living situation and remain independent in ADLs upon discharge from hospital General Nichole Celis, zinc chloride operator - family caregiver with be involved in care transitions and discharge planning General Indu Keyes welcome wagon hostess Procedure Name Priority Date/Time Associated Diagnosis Comments HEPATITIS PANEL,ACUTE Routine 11/10/2021 6:55 AM PARACHUTE PACKER from Last 3 Months or Most Recently Relevant to Health Maintenance Results * HEPATITIS PANEL,ACUTE (11/10/2021 6:55 AM PARACHUTE PACKER) HEPATITIS B SURFACE AG NON-REACT LISA NON-REACT LISA 11/10/2021 6:00 PM PARACHUTE PACKER [facility] Comment:HBsAg NOT DETECTED. HEP B CORE IGM NON-REACT LISA NON-REACT LISA 11/10/2021 6:00 PM PARACHUTE PACKER [facility] Comment: IgM ANTI HBc NOT DETECTED. DOES NOT EXCLUDE THE POSSIBILITY OF EXPOSURE TO OR INFECTION WITH HBV. NO RETEST REQUIRED. HIGH DOSES OF BIOTIN MAY INTERFERE WITH THIS TEST RESULT. CORRELATION TO CLINICAL HISTORY AND PRESENTATION RECOMMENDED. HAV IGM NON-REACT LISA NON-REACT LISA 11/10/2021 6:00 PM PARACHUTE PACKER [facility] Comment: IgM ANTI HAV NOT DETECTED. DOES NOT EXCLUDE THE POSSIBILITY OF EXPOSURE TO OR INFECTION WITH HAV. LEVELS OF IgM ANTI HAV MAY BE BELOW THE CUTOFF IN EARLY INFECTION. HEPATITIS C AB NON-REACT LISA NON-REACT LISA 11/10/2021 6:00 PM PARACHUTE PACKER [facility] Comment: ANTIBODIES TO HCV NOT DETECTED. DOES NOT EXCLUDE THE POSSIBILITY OF EXPOSURE TO HCV. 11/10/2021 6:55 AM PARACHUTE PACKER Mohamud May MD LABORATORY Final Result [facility] [address] [place] [address], [id number] from Last 3 Months or Most Recently Relevant to Health Maintenance Additional Health Concerns Infection Onset Date Last Indicated ESBL - Extended Spectrum Bet a-lactamase Comment:10/09/21 Urine (SB) 10/11/2021 10/11/2021 Insurance MEDICAID GENERIC - WORK COMP Advance Directives * Full Code (Latest Code [...] 8:51 AM 09/30/2021 2:19 PM Care Teams Payroll Associate Relationship Specialty Start Date End Date Gretchen Palacio NP PCP - General NURSE PRACTITIONER 05/13/23
--- OUTSIDE RECORDS SUMMARY | 2025-07-30 20:31 | XMS_ITS | Clinical Summary ---
Author Organization [facility] Address [address] [place] [address] Phone Care Team Providers Care Zoo Keeper Name Role Phone Unavailable Primary Care Provider [...] 2023 PAP SMEAR 2023 INFLUENZA VACCINE (#1) 2025 DTAP/TDAP/TD VACCINES (2 - Td or Tdap) 05/06/2033 Insurance [facility] [id number] POS II
--- OUTSIDE RECORDS SUMMARY | 2025-07-30 20:31 | XMS_ITS | Encounter Summary ---
Author Organization [facility] Address [facility] [place] [address] Care Team Providers Care Waste Reclaimer Name Role Phone Paige Gilbert MD Primary Care Provider [phone] Jose Servin MD Primary Care Provider [phone] Gretchen Palacio NP Primary Care Provider [phone] Encounter Details Date Type Department Care Team (Late st Contact Info) Description 03/01/2019 Abstract [facility] CONVERSION [address] [place] [address] , Generic Conversion, Social History Tobacco Use Types Packs/Day Years Used Date Smoking Tobacco: Never Assessed Comments Unknown Sex and Gender Information Value Date Recorded Sex Assigned at Female 10/02/2021 8:36 PM WOOL FLEECE GRADER Legal Sex Female 5:58 PM WOOL FLEECE GRADER Gender Identity Female 10/02/2021 8:36 PM WOOL FLEECE GRADER Sexual Orientation Not on file documented as of this encounter Plan of Treatment Not on file documented as of this encounter Visit Diagnoses Not on filedocumented in this encounter Additional Health Concerns Infection Onset Date Last Indicated Resolved Time COVID-19 Rule Out 09/30/2021 09/30/2021 09/30/2021 10:27 PM WOOL FLEECE GRADER ESBL - Extended Spectrum Beta-lactamase Comment:10/09/21 Urine (SB) 10/11/2021 10/11/2021 COVID-19 Rule Out 11/12/2021 11/12/2021 11/12/2021 9:58 AM WOOL FLEECE GRADER COVID-19 Rule Out 12/14/2021 12/14/2021 12/14/2021 10:09 PM CDT documented as of this encounter Care Teams Waste Reclaimer Relationship Specialty [place] [address] [place] [address] PCP - General FAMILY PRACTICE 03/05/19 11/09/21 Jose Servin MD [address] [place] [phone] PCP - General FAMILY PRACTICE 11/10/21 05/12/23 Gretchen Palacio NP [address] [place] [phone] PCP - General NURSE PRACTITIONER 05/13/23 documented as of this encounter
--- OUTSIDE RECORDS SUMMARY | 2025-07-30 20:31 | XMS_ITS | Encounter Summary ---
Author Organization [facility] Address [facility] [place] [address] Care Team Providers Care Oim Architect Name Role Phone Gretchen Palacio RATCHET SETTER Primary Care Provider [phone] Encounter Details Date Type Department Care Team (Latest Contact Info) Description 07/29/2025 Travel Social History Tobacco Use Types Packs/Day Years [...] 10/03/2021 How often do you attend chur or hindu services? Never 10/03/2021 Do you belong to any clubs o r organizations such as holiness groups, unions, fraternal or athletic groups, or [...] and heating? Not hard at all 10/03/2021 [facility] of Occupat ional Health - Occupational Stress [...] place to sleep or slept in a alf (including now)? No 10/03/2021 Depression Answer Date Recor ded Last EPDS Total Score 0 10/02/2021 Last EPDS Self Harm Result Never 10/02 Comments No Sex and Gender Information Value Date Recorded Sex Assigned at Female 10/02/2021 8:36 PM HOT STONE SETTER Legal Sex Female 5:58 PM HOT STONE SETTER Gender Identity Female 10/02/2021 8:36 PM HOT STONE SETTER Sexual Orientation Not on file documented as of this encounter Functional Status [...] 9:20 AM Sami Strickland RN Active * [place] Suicide Severity Rating Scale (Screener/Recent Self-Report) Question Answer Date of Assessment Author Status 1. Wish to be (Past 1 Month) No 07/29/2025 9:20 AM Indu Strickland RN Act tunde 2. Non-Specific Active Suicidal Thoughts (Past 1 Month) No 07/29/2025 9:20 AM HOT STONE SETTER [place], Indu R, RN Act tunde 6. Suicidal Behavior (Lifetime) [...] upon discharge from hospital General No Nichole Kelly RN Family - family caregiver with be involved in care transitions and discharge planning General No Indu Castano RN documented as of this encounter Visit Diagnoses Not on filedocumented in this encounter Additional Health Concerns Infection Onset Date Last Indicated Resolved Time ESBL - Extended Spectrum Bet a-lactamase Comment:10/09/21 Urine (SB) 10/11/2021 10/11/2021 documented as of this encounter Care Teams Oim Architect Relationship Specialty Start Date End Date Gretchen Palacio, MYRNA PCP - General NURSE PRACTITIONER 05/13/23 documented as of this encounter
== END 2025-07-30 14:15 | disposition home or self-care (01) ==
PROVIDERS: PCP Nurse Practitioner Family; Visit Provider Nurse Practitioner Family
DX: R50.9 Fever, unspecified (principal); R11.10 Vomiting, unspecified; N94.9 Unspecified condition associated with female genital organs and menstrual cycle; T14.8XXA Other injury of unspecified body region, initial encounter; Z20.822 Contact with and (suspected) exposure to COVID-19
CPT/HCPCS: 87637; 87651

== ENCOUNTER 2025-07-30 14:27 | Outpatient (CLI) | payer OTHER, SELFPAY ==
--- NOTE | ~2025-07-30 | XR_ITS ---
EXAMINATION: XR facial bones min 3V, 07/30/2025 14:30 [facility] HISTORY: FEVER, VOMITING, NOSE CONTUSION COMPARISON: No comparisons available. Findings: No acute fracture or malalignment. No significant degenerative changes. Soft tissues unremarkable. Impression: No acute fracture or malalignment. Reviewed, dictated and finalized at location [facility] Impression: No acute fracture or malalignment.
== END 2025-07-30 14:28 | disposition home or self-care (01) ==
LOC: CHSIMG 14:29
PROVIDERS: PCP Nurse Practitioner Family; Visit Provider Nurse Practitioner Family
DX: R50.9 Fever, unspecified (principal); R11.10 Vomiting, unspecified; S00.33XA Contusion of nose, initial encounter
CPT/HCPCS: 70150